=== PATIENT | female | born 1950 ===

== ENCOUNTER 2018-10-27 13:03 | Outpatient (CLI) | payer MEDICARE, OTHER ==
--- NOTE | 2018-10-27 16:21 | BD ---
Exam: DEXA Bone Density 10/27/18 HISTORY: 68-year-old postmenopausal female. Screening study. Lumbar Spine: BMD (g/cm2) T-SCORE Z-SCORE L1 0.697 -2.7 -1.0 L2 0.780 -2.3 -0.4 L3 0.873 -1.9 0.1 L4 0.824 -2.2 -0.1 L1-L4 0.795 -2.3 -0.4 Femoral Neck: 0.668 -1.6 0.0 Total Femur: 0.862 -0.7 0.7 Lumbar spine: WHO classification is osteopenia; fracture risk is increased. Femoral neck: WHO classification is osteopenia; ten year fracture risk for major osteoporotic fracture is 11%, hip fracture 1.8%. There appears to be severe degenerative change with sclerosis and osteophyte formation of the lumbosa cral junction. POS: OFF
--- NOTE | 2018-11-04 14:46 | MMO ---
Bilateral MAMMO Bilat Screen [facility]. CLINICAL HISTORY: Patient is 68 years old and is seen for screening. The patient has no family history of breast cancer. The patient has no personal history of cancer. The patient has a history of right Excisional Biopsy at age 38 - benign. VIEWS: The views performed were: bilateral craniocaudal with tomosynthesis and bilateral mediolateral oblique with tomosynthesis. FILMS COMPARED: The present examination has been compared to prior imaging studies performed at [facility] on 02/27/2014, 06/25/2015 and 08/12/2016. MAMMOGRAM FINDINGS: There are scattered fibroglandular densities. Benign calcifications are noted bilaterally. There are no suspicious masses, suspicious calcifications, or new areas of architectural distortion. IMPRESSION: THERE IS NO MAMMOGRAPHIC EVIDENCE OF MALIGNANCY. A ROUTINE FOLLOW-UP MAMMOGRAM IN 1 YEAR IS RECOMMENDED. THE RESULTS OF THIS EXAM WERE SENT TO THE PATIENT. ACR BI-RADS Category 2 - Benign finding MAMMOGRAPHY NOTE: 1. A negative mammogram report should not delay a biopsy if a dominant of clinically suspicious mass is present. 2. Approximately 10% to 15% of breast cancers are not detected by mammography. 3. Adenosis and dense breasts may obscure an underlying neoplasm.
== END 2018-10-27 13:04 | disposition home or self-care (01) ==
LOC: BICMAMMO 13:03
PROVIDERS: ATTEND Nurse Practitioner Family
DX: Z12.31 Encounter for screening mammogram for malignant neoplasm of breast (principal); Z13.820 Encounter for screening for osteoporosis; M85.89 Other specified disorders of bone density and structure, multiple sites; Z91.89 Other specified personal risk factors, not elsewhere classified
CPT/HCPCS: 77063; 77067; 77080

== ENCOUNTER 2019-02-07 10:30 | Outpatient (CLI) | payer MEDICARE, OTHER ==
--- NOTE | 2019-02-07 10:50 | RAD ---
Exam: Chest 2 views HISTORY:Cough Comparison: 05/07/2018 FINDINGS: Lungs: No masses or consolidation. Mild elevation of left hemidiaphragm is stable. Cardiac silhouette: Normal size Pulmonary vessels: Normal Pleural Spaces: Clear Pneumothorax: None Osseous abnormalities: None of acuity. IMPRESSION: Stable chest.
== END 2019-02-07 10:31 | disposition home or self-care (01) ==
LOC: SCSRAD 10:30
PROVIDERS: ATTEND Nurse Practitioner Family
DX: R05 Cough (principal); R06.02 Shortness of breath
CPT/HCPCS: 71046